=== PATIENT | female | born 1960 | race Caucasian/White ===

== ENCOUNTER → 2017-03-29 | Day surgery (SDC) | payer OTHER ==
[~2017-03-29] MED LIST: BUPIVACAINE HCL PF 0.75% 30 ML VIAL ONE; EPINEPHrine HCL (1:1000) 30 MG/30 ML VIAL ONE; LACTATED RINGER'S 1000 ML INJ 1,000 ML ONE; MIDAZOLAM HCL 5 MG/ML VIAL (1 ML) ONE; PROPOFOL 200 MG/20 ML AMP IV ONE; ceFAZolin 2 GM PREMIX 50 ML ONE
--- NOTE | 2017-03-29 16:21 | MP ---
cc: MIQUEL RIVERO M.D. DATE OF SURGERY: 03/29/2017 PREOPERATIVE DIAGNOSIS: Recurrent left shoulder rotator cuff tear. POSTOPERATIVE DIAGNOSIS Recurrent left shoulder rotator cuff tear. PROCEDURE: Left shoulder revision rotator cuff repair. ANESTHESIA: Interscalene block and general SURGEON Miquel Rivero MD FOOD COUNSELOR SURGEON Cal Cash MD ESTIMATED BLOOD LOSS: Minimal COMPLICATIONS None known. INDICATION Brittany Carrillo is a 56-year-old female who has had the rotator cuff surgery on both shoulders. The left shoulder has recurrent pain symptomatology and a new MRI scan shows significant recurrent rotator cuff tear. Originally this was a very large tear with tissue retracted to the level of glenoid similarly the current MRI is quite large tear. Risks, benefits of the options of treatment were thoroughly discussed in detail informed consent was obtained for revision rotator cuff surgery, included in the discussion was a possible need for reverse shoulder arthroplasty in the future. 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 PROCEDURE The patient is given interscalene block. The preop holding area brought to the operating room, placed under general anesthetic, turned to the lateral decubitus position with axillary roll in place, left shoulder up, left shoulder straight and prepped in usual sterile fashion. IV antibiotics were given. Time-out completed. A three portal technique was used. Blunt trocar used to introduce the cannula posteriorly. The first photograph shows biceps tendon and articular surfaces, some mild wear on a articular surfaces. The rotator cuff was retracted to the level of the biceps tendon it was scarred down to the biceps tendon and there was abundant amount of scar tissue in the subacromial space, we spent quite a time releasing the rotator cuff from its deep origin and then releasing the scar tissue on top and going over and gently repeating the subacromial decompression, mild debridement of the biceps tendon. Assessed for repair and decided to inside ago with two anchors on the articular margin we repaired the footprint all this quiet took quite a time and then we repaired this L configuration with each metallic anchor at the articular margin and then additionally we used some free sutures in horizontal mattress sutures to pull to reinforce a double row configuration at the fourth. There is at the point where the infraspinatus and supraspinatus mean on the lateral aspect of the humerus. Additionally we did [id number] stitch and to valve close the rotator interval multiple photographs showed final result there was some limitation of motion associated with the repair the arthroscopic equipment was removed after hemostasis was achieved and then we proceeded to close absorbable sutures. Steri-Strips applied. Sterile dressing applied. The patient was awoken return recovery room in stable condition. MD ALEXANDER Arciniega/don /12:02 PM /3:22 PM
== END | disposition home or self-care (01) ==
LOC: ESDC 07:00
PROVIDERS: ATTEND Orthopaedic Surgery Sports Medicine
DX: M75.102 Unspecified rotator cuff tear or rupture of left shoulder, not specified as traumatic (principal)
CPT/HCPCS: 01630; 01991; 29827; 64417; C1713; J0171; J0690; J2250; J7120